=== PATIENT | female | born 1995 | race Caucasian/White ===

== ENCOUNTER 2020-11-22 01:51 | Inpatient (IN) | payer BC ==
[2020-11-22 04:50] LABS: RED BLOOD COUNT 3.71 M/UL (4.00-5.10); WHITE BLOOD COUNT 14.2 K/UL (4.5-11.0)
[2020-11-22] MEDS ORDERED: IBUPROFEN600 MG PO (14:48)
[2020-11-22] MEDS ORDERED: DOCUSATE SODIU250 MG PO (14:48)
[2020-11-22] MEDS ORDERED: HYDROCODONE-AC1 EACH PO (14:48)
[2020-11-23 06:21] LABS: HEMOGLOBIN 10.1 gm/dl (12.3-15.3)
== END 2020-11-23 15:03 | disposition home or self-care (01) | DRG 807 ==
LOC: GENOP 01:51 → OB 05:10
PROVIDERS: Obstetrics & Gynecology; ADMIT Obstetrics & Gynecology
PROC: 10E0XZZ Delivery of Products of Conception, External Approach (ICD-10-PCS; principal; 2020-11-22)
PROC: 0KQM0ZZ Repair Perineum Muscle, Open Approach (ICD-10-PCS; 2020-11-22)
PROC: 3E033VJ Introduction of Other Hormone into Peripheral Vein, Percutaneous Approach (ICD-10-PCS; 2020-11-22)
PROC: 4A1HXCZ Monitoring of Products of Conception, Cardiac Rate, External Approach (ICD-10-PCS; 2020-11-22)
DX: O70.1 Second degree perineal laceration during delivery (principal); Z37.0 Single live birth; Z3A.38 38 weeks gestation of pregnancy; Z20.822 Contact with and (suspected) exposure to COVID-19
CPT/HCPCS: 36415; 51702; 80307; 81001; 82800; 85014; 85018; 85025; J0595; J2405; J2590; J2795; U0002